=== PATIENT | male | born 1950 | race Caucasian/White ===

== ENCOUNTER 2021-02-04 12:06 | Emergency (ER) | payer MEDICARE ==
[~2021-02-04] VITALS: Ht 182.9 cm; Wt 68.2 kg
[~2021-02-04 12:06] MED LIST: DIVA-80 PO; HALO5L PO; LITH300C3 PO; MELA5TAB3 PO; METF-960 PO; NALT50TA PO; OMEG-135 PO
[2021-02-04 12:42] VITALS: BP 132/72
[2021-02-04] MEDS ORDERED: BACITRACIN 0.9 GM PACKET OINTMENT TP ONE (12:45)
== END 2021-02-04 12:49 | disposition home or self-care (01) ==
LOC: EMS 12:07
DX: Z48.01 Encounter for change or removal of surgical wound dressing (principal); F31.9 Bipolar disorder, unspecified; Z88.8 Allergy status to other drugs, medicaments and biological substances; Z79.899 Other long term (current) drug therapy; F17.210 Nicotine dependence, cigarettes, uncomplicated
CPT/HCPCS: 99282; Z7502; Z7610